=== PATIENT | male | born 1950 ===

== ENCOUNTER 2017-06-05 07:01 | Day surgery (SDC) | payer OTHER ==
[~2017-06-05] VITALS: Ht 162.6 cm; Wt 76.2 kg
[2017-06-05] VITALS (7 sets, daily range): BP systolic 109–127; BP diastolic 63–68
[~2017-06-05 07:01] MED LIST: LR 1000ml 1,000 ML IVLG SCH
--- NOTE | 2017-06-05 07:08 | Anethesia Preoperative Eval ---
Anesthesia Pre-op PMH/ROS General Date of Evaluation: Jun 05, 2017 Time of Evaluation: 07:08 Anesthesiologist: augusto ASA Score: ASA 2 Mallampati Score Class I : Soft palate, uvula, fauces, pillars visible Class II: Soft palate, uvula, fauces visible Class III: Soft palate, base of uvula visible Class IV: Only hard plate visible Mallampati Classification: Class II Surgeon: bon Diagnosis: gerd Surgical Procedure: egd Anesthesia History: none Social History: smoking - former smoker Family History: no anesthesia problems Allergies: Coded Allergies: No Known Allergies (Unverified , 06/05/17) Medications: see eMAR Past Medical History Neurologic/Psychiatric: Reports: depression/anxiety Anesthesia Pre-op Phys. Exam Physician Exam Constitutional: NAD Neurologic: CN 2-12 intact Cardiovascular: RRR Respiratory: CTA Gastrointestinal: S/NT/ND Airway Exam Mallampati Score: Class II MO: full Neck: supple TMD: 2fb ROM: full Anesthesia Pre-op A/P Risk Assessment & Plan Assessment: asa2 Plan: mac Status Change Before Surgery: No Pre-Antibiotics Drug: KEL Back Jun 05, 2017 07:08
[2017-06-05] MEDS ORDERED: fentaNYL 100 mcg/2 mL IV PRN (07:15)
[2017-06-05] MEDS ORDERED: Atropine Inj 1mg/10ml Syr IV PRN (07:15)
[2017-06-05] MEDS ORDERED: Midazolam 2mg/2ml Inj IVP PRN (07:15)
[2017-06-05] MEDS ORDERED: DiphenhydrAMINE 50mg/ml Inj IVP PRN (07:15)
[2017-06-05] MEDS ORDERED: SULFAMETHOXAZO1 EAC2 ORAL (07:27)
[2017-06-05] MEDS ORDERED: Propofol 200mg/20ml IV ONE (07:30)
[2017-06-05] MEDS ORDERED: Lidocaine 1% MPF 10mg/ml 5ml ONE (07:30)
[2017-06-05] MEDS ORDERED: LR 1000ml ONE (07:30)
[2017-06-05] MEDS ORDERED: Midazolam 2mg/2ml Inj ONE (07:30)
[2017-06-05] MEDS ORDERED: SIMETHICONE (07:55)
[2017-06-05] MEDS ORDERED: ANTACID (07:55)
[2017-06-05] MEDS ORDERED: OMEPRAZOLE40 M1 ORAL (07:55)
--- NOTE | 2017-06-05 08:04 | Short Stay Surgery H&P ---
History of Present Illness History of Present Illness Chief Complaint Abdominal pains/GERDS HPI Jg Lambert is a 67 year old male who was admitted on for GERD/abdominal pains Patient History Allergies: Coded Allergies: No Known Allergies (Unverified , 06/05/17) PAST MEDICAL HISTORY: Past Surgeries: (1) H/O laminectomy Social History: Medication History Scheduled Omeprazole (Omeprazole), 40 MG ORAL DAILY, (Reported) Sulfamethoxazole/Trimethoprim Ds Tablet* (Sulfamethoxazole-Tmp Ds Tablet*), 1 TAB ORAL TWICE A DAY, (Reported) Miscellaneous Medications [Antacid/Simethicone], (Reported) Review of Systems Cardiovascular: Reports: no symptoms Respiratory: Reports: no symptoms Skeletal: Reports: spinal disc disease Gastrointestinal: Reports: gastro esophageal reflux disease Genitourinary: Reports: no symptoms Neurologic: Reports: no symptoms Endocrine: Reports: no symptoms Hematologic: Reports: no symptoms Physical Exam Vital Signs Last Vital Signs Date Time Temp Pulse Resp B/P (MAP) Pulse Ox O2 Delivery O2 Flow Rate FiO2 06/05/17 07:47 97.8 69 18 127/64 98 Room Air 97.8 Skin: normal HENT: normal Heart: normal Lungs: normal Abdomen: abnormal Extremities: normal Genitourinary: normal Plan Plan of Care Upper GI endoscopy Preop Interventions None. Summary of Findings See the reports Final Diagnosis: Attestation Are the patient's medical conditions optimized for surgery? Attestation Response: yes FILEMON RICHEY Jun 05, 2017 08:04
--- NOTE | 2017-06-05 08:06 | Pre-Procedure Note/Attestation ---
Pre-Procedure Note/Attestation Complete Prior to Procedure Planned Procedure: left Procedure Narrative: Upper GI endoscopy and biopsy Indications for Procedure Pre-Operative Diagnosis: R/O Peptic ulcer Attestation I attest that I discussed the nature of the procedure; its benefits; risks and complications; and alternatives (and the risks and benefits of such alternatives ), prior to the procedure, with the patient (or the patient's legal sales representative). I attest that, if there was a reasonable possibility of needing a blood transfusion, the patient (or the patient's legal sales representative) was given the [facility] standardized written summary, pursuant to the Darrel Jo-Ann Blood Safety Act ([place] Health and Safety Code # 1645, as amended). I attest that I re-evaluated the patient just prior to the surgery and that there has been no change in the patient's H&P, except as documented below: KAIDEN,SAID Jun 05, 2017 08:06
--- NOTE | 2017-06-05 08:15 | Discharge Instructions ---
Discharge Instructions Discharge Instructions Follow up with: See the doctor in office after 2 weeks. For Congestive Heart Failure Reminder Report to your physician any weight gain of 5 pounds or more in one week. FILEMON RICHEY Jun 05, 2017 08:15
--- NOTE | 2017-06-05 08:15 | Endoscopy Procedure Note ---
Endoscopy Procedure Note General Indication for Procedure: Abdominal pains/GERDs Procedures Performed: EGD - Mild gastritis, otherwise normal Upper GI endoscopy. Biopsies obtained from antrum and mid body of the stomach. Specimen: yes Pt Tolerated Procedure Well: Yes Estimated Blood Loss: none Anesthesia Anesthesiologist: Dr. Payne Anesthesia: moderate sedation Medications Medication Given: see anesthesia record Inserted Devices Implant(s) used?: No Quality Was there any complications?: No GI Core Measures 50 yrs or older w/o bx or poly: Not Applicable 10yrs. F/U not recommended: Not Applicable If not recommended, why?: Med reason:<3 yrs.: System Reason:<3 yrs.: FILEMON RICHEY Jun 05, 2017 08:15
--- NOTE | 2017-06-05 09:22 | Immediate Post-Op Evaluation ---
Immediate Post-Op Evalulation Immediate Post-Op Evalulation Procedure: egd Date of Evaluation: Jun 05, 2017 Time of Evaluation: 08:31 IV Fluids: 250ml lr Blood Products: none Estimated Blood Loss: negligible Blood Pressure Systolic: 109 Blood Pressure Diastolic: 63 Pulse Rate: 67 Respiratory Rate: 18 O2 Sat by Pulse Oximetry: 96 Temperature (Fahrenheit): 97.2 Pain Score (1-10): 0 Nausea: No Vomiting: No Complications none Patient Status: awake, reacts, patent Hydration Status: adequate Drug: KEL Back Jun 05, 2017 09:22
--- NOTE | 2017-06-05 09:23 | 48 Hour Post Anesthesia Eval ---
Post Anesthesia Evaluation Procedure: egd Date of Evaluation: Jun 05, 2017 Time of Evaluation: 08:33 Blood Pressure Systolic: 114 0: 63 Pulse Rate: 63 Respiratory Rate: 18 Temperature (Fahrenheit): 97.2 O2 Sat by Pulse Oximetry: 97 Airway: patent Nausea: No Vomiting: No Pain Intensity: 0 Hydration Status: adequate Cardiopulmonary Status: stable Mental Status/LOC: patient returned to baseline Post-Anesthesia Complications: none Follow-up care needed: N/A KEL ESPINOZA Jun 05, 2017 09:23
--- NOTE | 2017-06-05 10:45 | Pre-op HX & Phy Repo 2 SIG ---
DATE OF ADMISSION: 06/05/2017 HISTORY OF PRESENT ILLNESS: The patient is a 67-year-old gentleman, who is being seen prior to undergoing the procedure of upper GI endoscopy for which he has been scheduled to receive evaluation of his gastrointestinal symptoms subsequent to his work injury. The applicant basically reports that he is experiencing pain and discomfort over the upper part of the abdomen associated with periods of intermittent chest pain, which seems to be radiating from the upper abdomen. He also reports that these pains are occurring intermittently on a daily basis of medium strength. He reports that also these symptoms started after he was injured years back in 2007 while he was at work and he was started on some medications, which basically seems to have been nonsteroidal anti-inflammatory agents and narcotics. He denies having difficulty with his swallowing such as dysphagia. There is no history of GI bleeding such as hematemesis or melena. As I mentioned, he does have moderate heartburn as well and occasionally he has been experiencing some nausea and vomiting episodes. 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 He was also diagnosed to have sciatic neuralgia as well and he has received also epidural injections. PAST MEDICAL HISTORY: Basically not significant. He denies high blood pressure, hyperlipidemia, arthritis, etc. PAST SURGICAL HISTORY: Dorsolumbar surgery for disc disease in 2008 and 2015, which is consistent with laminectomy and discectomy. ALLERGIES: None significant. HABITS: The applicant does not smoke cigarettes and denies drinking alcohol, etc. MEDICATIONS: Currently, oxycodone, omeprazole, atorvastatin, and fenofibrate. REVIEW OF SYSTEMS: Basically, history of present illness. PHYSICAL EXAMINATION: GENERAL: Alert and oriented gentleman, who does not seem to be in any acute distress. VITAL SIGNS: All stable. HEENT: Normocephalic. Pupils equal in size and reactive to light and accommodation. No visible jaundice. NECK: Supple. No JVD or thyromegaly. CHEST: Clear to auscultation and percussion. HEART: S1 and S2 normal. Regular rhythm. ABDOMEN: Soft, but there are areas of tenderness over the upper part of the abdomen, but no palpable mass noted at this time. EXTREMITIES: No pretibial edema, cyanosis, or clubbing. CENTRAL NERVOUS SYSTEM: Grossly normal. PRELIMINARY PREOPERATIVE DIAGNOSES: 1. Epigastric pain of uncertain etiology, rule out nonsteroidal anti-inflammatory drug-induced gastropathy, peptic ulcer disease, esophagitis, gastritis, duodenitis, etc. 2. History of bodily injury, work related. RECOMMENDATION: The applicant seems to be stable at this time to undergo the procedure of upper GI endoscopy for which he has been scheduled. He understands the risks and benefits and will sign the consent. Said Galileo Damon DR: KWABENA JOB#: [id number] CC:
--- NOTE | 2017-06-05 16:00 | Operative Note - Dictated ---
DATE OF OPERATION: 06/05/2017 SURGEON: Anitha Damon M.D. PROCEDURE PERFORMED: Esophagogastroduodenoscopy with biopsy. PREOPERATIVE DIAGNOSES: 1. Abdominal pain. 2. Chest pain. 3. He has a history of gastroesophageal reflux and use of nonsteroidal anti-inflammatory agents. POSTOPERATIVE DIAGNOSIS: Mild generalized gastritis. Biopsy was taken from antrum and gastric body. MEDICATION USED: Per Dr. Payne, anesthesiologist. INSTRUMENT: GIF Olympus upper GI video endoscope. DESCRIPTION OF PROCEDURE: The patient after arriving endoscopy unit was told about risks and benefits of the procedure, which he accepted and signed informed consent. At this time, he was put on the left lateral decubitus position. After adequate IV sedation, the scope was gently passed through the cricopharyngeal area and was lodged into the upper esophagus. Subsequently, the scope was gradually advanced towards gastroesophageal junction and total examination of the esophagus revealed no abnormalities. The GE junction also looked normal without any evidence of hiatal hernia or Siegel's. At this time, the scope was advanced into the stomach. Gastric cavity was insufflated with air, and the areas of the fundus and the body and the antrum were examined and revealed there was mild inflammatory process presenting with erythema and some edema over the body and the antral area consistent with mild gastritis. One random biopsy from gastric body and antrum were obtained and subsequently, the scope was passed through a normal looking pylorus. First and second portions of duodenum were found to be also completely normal. At this time, the scope was pulled back into the stomach. A retroflexion maneuver was applied and the area of the gastroesophageal junction was examined in a closer fashion, which did not reveal any abnormality. Finally, the scope was pulled out and the procedure was terminated. The patient tolerated the procedure well and left the endoscopy room in a good condition. Anitha Damon M.D. DR: KWABENA JOB#: [id number] CC:
== END 2017-06-05 10:40 | disposition home or self-care (01) ==
LOC: GAS 07:01
DX: K29.50 Unspecified chronic gastritis without bleeding (principal); K21.9 Gastro-esophageal reflux disease without esophagitis; R07.9 Chest pain, unspecified; M51.36 Other intervertebral disc degeneration, lumbar region; F32.9 Major depressive disorder, single episode, unspecified; F41.9 Anxiety disorder, unspecified; Z87.891 Personal history of nicotine dependence
CPT/HCPCS: 43239; J2250; J2704; J7120; 94003; 94150